=== PATIENT | female | born 1985 | race Caucasian/White ===

== ENCOUNTER 2025-06-30 20:10 | Emergency (ER) | payer OTHER ==
[2025-06-30 21:04] LABS: Glucose, Urine (Dipstick) Negative (Negative); Leukocyte Negative (Negative); Protein, Urine (Dipstick) Negative (Neg-Trace); Specific Gravity, Urine 1.010 (1.005-1.030)
[2025-06-30 21:08] LABS: Bacteria/HPF None Seen HPF (None Seen); CAUTI Indications for Culture Dysuria,urgency,freq; RBC/HPF 0-3 HPF (0-3); WBC/HPF None Seen HPF (0-3)
[2025-06-30 21:09] LABS: Urine Culture Reflex No No
== END 2025-06-30 23:02 | disposition home or self-care (01) ==
LOC: NAV ERS 20:10
DX: O99.891 Other specified diseases and conditions complicating pregnancy (principal); R33.9 Retention of urine, unspecified; Z3A.11 11 weeks gestation of pregnancy; Z79.82 Long term (current) use of aspirin
CPT/HCPCS: 51798; 81001; 99283

== ENCOUNTER 2025-06-30 23:33 | Emergency (ER) | payer OTHER | END 2025-07-01 00:13 | disposition home or self-care (01) | LOC: NAV ERS 23:33 | DX: O99.891 Other specified diseases and conditions complicating pregnancy (principal); R33.9 Retention of urine, unspecified; Z3A.11 11 weeks gestation of pregnancy | CPT/HCPCS: 51702; 99283 ==